=== PATIENT | male | born 1985 | race Caucasian/White ===

== ENCOUNTER 2024-02-05 11:04 | Outpatient (CLI) | payer OTHER ==
--- NOTE | 2024-02-05 11:57 | Sleep Patient Instructions ---
Sleep Center Visit Summary - Patient Visit Information Reason for Visit: Initial consultation - Patient Instructions Additional Instructions: You will continue with CPAP therapy with pressure changed to 7-9 cmH2O. Please let us know if the pressure change is uncomfortable and we can make further adjustments of the pressure. You will be completing a sleep study to verify diagnosis and severity. You will follow-up in the sleep care office after the sleep study is completed to hear the results and talk about therapy. You will be called by our office staff to schedule this appointment, - Clinic Information Contact: [facility] [address] [place] [id number] [email or web address] T: [phone]
[2024-02-05 12:07] VITALS: BP 148/84; O2SAT 97
--- NOTE | 2024-02-05 12:07 | SLEEP CARE CONSULTATION ---
Information from patient questionnaire entered by Lelo Franco. I have reviewed and concur with the information entered by Lelo Franco. This document represents the service I personally performed and the decisions made by me, Elisha Hearn ARNP. History of Present Illness Service Date and Time: 02/05/2024 1104 Reason for Visit: New patient, Previously diagnosed sleep apnea, sleep apnea on CPAP therapy Chief Complaint: reports: Unrefreshed sleep, Other (CHECK IN ITS BEEN A FEW YRS) Date of Onset: 3YRS Usual bedtime: [id number] Time it takes to fall asleep: 5MINE Snores at night: Yes Observed to quit breathing while asleep: No Sleeps alone due to snoring: No Number of times waking at night: MAYBE ONCE Reasons for waking at night: reports: Bathroom Toss, Turn, or Twitch while sleeping: Yes Recalls having dreams: Yes Usually gets out of bed at: 1376-1237 Feels refreshed in the morning: Yes Morning headache: Yes Sleepy or fatigued during the day: Yes Ever fallen asleep while driving: Yes Takes day naps: Yes Dreams during day naps: Yes Prior sleep studies: Yes Year and Where: [facility]UD[facility] 6YRS AGO Additional HPI information: IDALMIS ALONSO was previously diagnosed to have unknown, AHI unknown, obstructive sleep apnea-hypopnea syndrome and comes in today to establish care for CPAP therapy. He was originally diagnosed about 6 years ago. - Parasomnia Symptoms Ever been unable to move upon waking from sleep: No Walks in sleep: No Talks in sleep: No Ever acted out dreams in sleep: No Ever felt weak in the knees when startled or emotional: No Bothered by creepy, crawly, restless sensations in legs: No Problems with memory or concentration: Yes CPAP Compliance Data - Data Reviewed with Patient Average duration of nightly device use: 7 hrs 25 mins Compliance rate %: 100 (08/09/23-02/04/24; 180/180 days used) Current pressure setting (cmH2O): 7-8 (avg 8) Average residual AHI: 5.8 Central apnea: 0.1 Obstructive apnea: 0.8 Hypopnea: 4.9 Average large leak: 0 secs Compliance data discussion: He has a Dreamstation 2. He was getting supplies in [place]. He is using a nasal cushion mask. Subjective Patient concerns: reports: nasal congestion. denies: aerophagia, mask discomfort, air blowing in eyes, mask leak noise, condensation in mask/hose, dry mouth, nose, throat, epistaxis Observed to snore while using device: Yes Current pressure setting perceived as: comfortable On therapy, patient: reports: sleeping better, being more awake and alert during the day. 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 Patient is and lives in . Have you smoked in the past 12 months: No Alcohol use: No Caffeine use: No Caffeine amount and frequency: quit month ago Family History Family history of sleep disordered breathing: Yes Family Hx Sleep Apnea: Mother: Sleep apnea - Treated Allergies and Home Medications Known drug allergies: No Drug allergies reviewed: Yes Home medication list reviewed: Yes (as listed) Allergy and home medication list: Allergies No Known Drug Allergies Allergy (Verified 02/05/24 11:25) Home Medications Cholecalciferol (Vitamin D3) [Vitamin D3] See Rx Instructions .ROUTE .COMPLEX 02/05/24 [History] Divalproex Sodium [Depakote] See Rx Instructions .ROUTE .COMPLEX 02/05/24 [History] Escitalopram Oxalate [Lexapro] See Rx Instructions .ROUTE .COMPLEX 02/05/24 [History] Lamotrigine [Lamictal (Blue)] See Rx Instructions .ROUTE .COMPLEX 02/05/24 [History] Review of Systems Weight gain over past 5 years: 50 Cardiovascular: denies: high blood pressure Gastrointestinal: denies: heartburn Neurological: denies: headaches Psychiatric: reports: anxiety Ear/Nose/Throat: reports: sinus problems, wisdom teeth removed. denies: tonsillectomy Endocrine: reports: too hot or cold Musculoskeletal: reports: joint pain, back pain Physical Exam Vital signs obtained and entered by: LELO Lou MA Blood Pressure: 148/84 (LEFT ARM) Cuff size: long Heart Rate: 81 O2 Saturation: 97 Height: 6 ft 5 in Weight: 328 lb 9.6 oz Body Mass Index: 38.9 BMI Classification: Obese Neck circumference: 19.5 Mouth and throat: narrow oropharynx Soft palate: long Hard palate: normal Uvula: normal Uvula visualization: 25% Mallampati Class III Tongue: enlarged in size with teeth rios on lateral edges Tonsils: 1+ Neck: normal w/o lymphadenopathy or thyromegaly Heart: regular rate and rhythm Lungs: clear bilaterally Impression and Plan 1. Obstructive Sleep Apnea-Hypopnea Syndrome, unknown, with good treatment compliance and fair apnea control with minimal elevation of residual AHI. On CPAP therapy, the patient has better sleep quality. His is saying he is snoring when using CPAP. To resolve snore, the CPAP pressure will be changed to 7-9 cmH20. Patient advised to contact this office if pressure change uncomfortable or if pressure change does not resolve snore. He does not have a copy of his last sleep study and he states he has gained 50 pounds since the last sleep study was completed. We will have him do another sleep study to verify diagnosis and severity to get new baseline with weight gain. Patient's apnea severity and rationale for treatment to reduce apnea, improve sleep quality and reduce cardiovascular and cerebrovascular events was reviewed. I also reviewed the benefit of consistent device use of CPAP for diabetes. 2. Obesity, unspecified. Currently patients BMI is 38.9. Obesity increases the risk of apnea, CPAP pressure requirements and overall health risks especially cardiovascular and diabetes. Thus patient is advised to lose weight. * PSG to verify diagnosis and severity * Change auto CPAP pressure to 7-9 cmH2O * Notify me if snoring with mask or feeling that the pressure is too much or too little * Attempt to lose weight * Call this office if any problems using CPAP * Return for follow up after sleep study, or sooner if concerns arise Adjust device pressure to (cmH2O): 7-9 Counseling Topics: Spare mask, Weight loss health impact Plan: Verifying PSG Visit Type: In Office Time Spent with Patient (minutes): 36 Provider Statement: I spent 100% of the Face to Face Visit with the patient with greater than 50% spent counseling the patient and coordination of care.
== END 2024-02-05 11:05 | disposition home or self-care (01) ==
LOC: SC 11:04
PROVIDERS: ATTEND Nurse Practitioner Family
DX: G47.33 Obstructive sleep apnea (adult) (pediatric) (principal); E66.9 Obesity, unspecified; Z68.38 Body mass index [BMI] 38.0-38.9, adult
CPT/HCPCS: 99203; 99212